=== PATIENT | male | born 1960 | race Caucasian/White ===

== ENCOUNTER 2018-05-14 14:39 | Emergency (ER) | payer BC ==
[~2018-05-14] VITALS: Ht 177.8 cm; Wt 92.5 kg
[2018-05-14] MEDS ORDERED: LISI10TA5 PO (14:53)
[2018-05-14] MEDS ORDERED: ESCI10TA PO (14:53)
[2018-05-14] MEDS ORDERED: SIMV10TA6 PO (14:53)
--- NOTE | 2018-05-14 14:55 | NUR ---
at bedside to see and examine patient.
[2018-05-14] MEDS ORDERED: ERGO500040 PO (15:08)
[2018-05-14 15:19] LABS: *BILIRUBIN,URIN NEGATIVE (NEGATIVE); *BLOOD, URINE 1+ (NEGATIVE); *CLARITY,URINE CLEAR (CLEAR); *COLOR,URINE YELLOW (YELLOW); *KETONES,URINE NEGATIVE (NEGATIVE); LEUKOCYTE ESTERASE ,URINE NEGATIVE (NEGATIVE); NITRITE, URINE NEGATIVE (NEGATIVE); UGLUCOSE 2+ (NEGATIVE)
[2018-05-14 15:22] LABS: BACTERIA,URINE NONE SEEN /HPF (NONE SEEN); SQUAMOUS EPITHELIAL CELL,UR FEW /HPF (NONE SEEN)
[2018-05-14 16:04] VITALS: BP 108/64
--- NOTE | 2018-05-14 16:04 | NUR ---
Patient discharged to home in stable conditon. Written and verbal after care instructions given. Patient verbalizes understanding of instructions.
== END 2018-05-14 16:07 | disposition home or self-care (01) ==
LOC: ER 14:39
DX: R31.29 Other microscopic hematuria (principal); E78.5 Hyperlipidemia, unspecified; R11.0 Nausea; Z79.899 Other long term (current) drug therapy
CPT/HCPCS: 87077; 87086; A4663

== ENCOUNTER 2020-03-31 13:29 | Emergency (ER) | payer BC ==
[~2020-03-31] VITALS: Ht 177.8 cm; Wt 87.5 kg
[~2020-03-31 13:29] MED LIST: ERGO500040 PO; ESCI10TA PO; LISI10TA5 PO; SIMV10TA98 PO
--- NOTE | 2020-03-31 13:41 | NUR ---
Dr Hoffman at the bedside for MSE.
[2020-03-31] MEDS ORDERED: HYDR-4384 PO ×5 (13:48→14:01)
[2020-03-31] MEDS ORDERED: DOCU-141 PO ×2 (13:49→13:53)
[2020-03-31] MEDS ORDERED: TRAM50TA2 PO (14:03)
--- NOTE | 2020-03-31 14:17 | NUR ---
MD talked to patient's spouse over the phone re: follow-up with a specialist (e.g. colorectal doctor or GI doctor) to address the hemorrhoid.
--- NOTE | 2020-03-31 14:17 | NUR ---
Pandemic COVID-19 disaster charting with "out of ratio" staffing in ER: Patient discharged to home in stable condition with brisk steady gait. Written and verbal after care instructions given. Patient verbalizes understanding & compliance f instructions. Stressed follow up with your GI doctor/internal medicine doctor or return to ER for worsening s/s.
== END 2020-03-31 14:17 | disposition home or self-care (01) ==
LOC: ER 13:29
DX: K64.5 Perianal venous thrombosis (principal); E78.5 Hyperlipidemia, unspecified; F32.9 Major depressive disorder, single episode, unspecified; Z79.899 Other long term (current) drug therapy
CPT/HCPCS: A4663